=== PATIENT | female | born 1985 | race African-American/Black ===

== ENCOUNTER 2024-07-10 13:08 | Emergency (ER) | payer BC ==
[2024-07-10 13:34] LABS: BASOPHILS ABSOLUTE AUTO 0.02 K/uL (0.00-0.20); BASOPHILS PERCENT AUTO 0.6 % (0.0-2.0); EOSINOPHILS ABSOLUTE AUTO 0.05 K/uL (0.00-0.50); EOSINOPHILS PERCENT AUTO 1.4 % (0.0-5.0); HEMATOCRIT 39.8 % (34.0-46.0); HEMOGLOBIN 13.6 g/dL (11.7-15.5); LYMPHOCYTES ABSOLUTE AUTO 2.21 K/uL (0.50-3.50); MEAN CORPUSCULAR HEMOGLOBIN 30.4 pg (28.2-33.3); MEAN CORPUSCULAR HGB CONC 34.2 g/dL (31.7-36.0); MONOCYTES ABSOLUTE AUTO 0.36 K/uL (0.00-1.00); MONOCYTES PERCENT AUTO 9.9 % (2.0-14.0); NEUTROPHILS ABSOLUTE AUTO 0.98 K/uL (1.40-7.00); NEUTROPHILS PERCENT AUTO 27.1 % (45.0-80.0); PLATELET COUNT,PLT 249 K/uL (150-350); RED BLOOD CELL COUNT 4.47 M/uL (3.77-5.09); RED CELL DISTRIBUTION WIDTH 11.9 % (11.2-14.1); WHITE BLOOD CELL COUNT,WBC 3.6 K/uL (4.0-10.2)
[2024-07-10] MEDS: Aluminum Hydroxide/Magnesium Hydroxide/Simethicone Susp 30 ML Cup PO ONE (13:50)
[2024-07-10 13:51] LABS: INR 1.1 (0.9-1.1)
[2024-07-10] MEDS: Lidocaine 2% Viscous Solution 15 ML UD PO ONE (13:52)
[2024-07-10] MEDS: Aspirin 81 MG Tab.Chew PO ONE (13:53)
[2024-07-10 13:55] LABS: ALBUMIN 3.6 g/dL (3.4-5.0); BILIRUBIN TOTAL 0.3 mg/dL (0.2-1.0); CALCIUM 8.8 mg/dL (8.5-10.1); CREATININE 0.73 mg/dL (0.51-1.17); EST CRCL DRUG DOSING (CG) 117.32 mL/min; MAGNESIUM 1.6 mg/dL (1.8-2.4); POTASSIUM,K 3.9 mmol/L (3.5-5.1); PROTEIN TOTAL,TP 7.1 g/dL (6.4-8.2)
[2024-07-10] MEDS: Ketorolac 30 MG/ML SDV IM ONE (14:30)
== END 2024-07-10 15:35 | disposition home or self-care (01) ==
LOC: LL.ED 13:08
DX: S29.011A Strain of muscle and tendon of front wall of thorax, initial encounter (principal); R07.89 Other chest pain; X58.XXXA Exposure to other specified factors, initial encounter
CPT/HCPCS: 36415; 71046; 80053; 83690; 83735; 84484; 85025; 85610; 93005; 96372; 99285; A9270-GY; J1885